=== PATIENT | female | born 1960 | race Caucasian/White ===

== ENCOUNTER → 2021-12-30 11:50 | Outpatient (CLI) | payer OTHER, SELFPAY ==
[2021-12-30 15:23] LABS: Folate > 20.0 ng/mL (2.76-20.0); Vitamin B12 750 pg/mL (239-931)
== END ==
PROVIDERS: PCP Family Medicine; Referring Provider Family Medicine; Visit Provider Family Medicine
DX: R53.83 Other fatigue (principal)
CPT/HCPCS: 36415; 82607; 82746; 84207

== ENCOUNTER → 2022-02-12 10:08 | Outpatient (CLI) | payer OTHER, SELFPAY ==
--- NOTE | 2022-02-12 10:09 | DI.US.S_ITS ---
ULTRASOUND OF RIGHT BREAST AND AXILLA: 02/12/2022 CLINICAL: Patient returns today to evaluate an asymmetry in the right breast. Comparison is made to exams dated: 02/12/2022 mammogram - [facility], 04/15/2021 ultrasound, 04/15/2021 mammogram, 10/02/2020 mammogram, and 10/02/2020 ultrasound - outside facility. Ultrasound of the right breast axilla was performed. There is a 0.9 cm x 0.7 cm x 0.8 cm irregular mass with an indistinct margin in the right breast at 12 o'clock middle depth 3 cm from the nipple. This irregular mass is hypoechoic. This abnormality is slightly increased in size. No significant abnormalities were seen sonographically in the right axilla. Few prominent lymph nodes with normal morphology are noted. IMPRESSION: SUSPICIOUS OF MALIGNANCY The 0.9 cm x 0.7 cm x 0.8 cm irregular mass in the right breast is at a moderate suspicion for malignancy. An ultrasound guided biopsy is recommended. Few prominent axillary lymph nodes with normal morphology are noted. This exam was interpreted at Station ID: [id number]. Electronically Signed By: Joaquin Smith M.D. lc/:02/13/2022 15:15:44 letter sent: Biopsy Required Ultrasound BI-RADS: 4b Moderate suspicion of malignancy
--- NOTE | 2022-02-12 10:09 | DI.MG.S_ITS ---
BILATERAL DIGITAL DIAGNOSTIC MAMMOGRAM 3D/2D: 02/12/2022 CLINICAL: Short term follow up for bilateral breasts. Comparison is made to exams dated: 10/02/2020 mammogram, 10/02/2020 ultrasound, 04/15/2021 ultrasound, and 04/15/2021 mammogram - outside facility. There are scattered fibroglandular elements in both breasts. There is an irregular mass with a microlobulated margin in the right breast at 12 o'clock anterior depth 3 cm from the nipple. No other significant masses, calcifications, or other findings are seen in either breast. IMPRESSION: INCOMPLETE: NEEDS ADDITIONAL IMAGING EVALUATION The irregular mass in the right breast is at a moderate suspicion for malignancy. US report to follow. A core biopsy is recommended. Based on the Tyrer Cuzick model (a risk assessment model) the patient's lifetime risk is 13.2% and her 10 year risk is 6.3%. According to the ACR, ACS, and NCCN guidelines, an annual breast MRI exam along with mammogram is recommended if the patient's lifetime risk is 20% or greater. This exam was interpreted at Station ID: [id number]. NOTE: For mammograms, a report in lay terms will be sent to the patient. Approximately 15% of breast malignancies will not be visualized mammographically. In the management of a palpable breast mass, a negative mammogram must not discourage biopsy of a clinically suspicious lesion. Electronically Signed By: Joaquin Smith M.D. lc/:02/12/2022 12:35:52 ACR BI-RADS Category 0: Incomplete 3340F
[2022-02-16 09:15] LABS: Vitamin B6 37.8 ug/L (3.4-65.2)
== END ==
PROVIDERS: PCP Family Medicine; Referring Provider Family Medicine; Visit Provider Family Medicine
DX: R92.1 Mammographic calcification found on diagnostic imaging of breast (principal); N63.15 Unspecified lump in the right breast, overlapping quadrants; E53.1 Pyridoxine deficiency; Z98.890 Other specified postprocedural states
CPT/HCPCS: 36415; 76642; 77066; 84207; G0279

== ENCOUNTER → 2022-02-26 14:04 | Outpatient (CLI) | payer OTHER, SELFPAY ==
--- NOTE | 2022-02-26 | DI.MG.S_ITS ---
UNILATERAL RIGHT DIGITAL DIAGNOSTIC MAMMOGRAM 3D/2D POST-PROCEDURE IMAGING FOR MARKER PLACEMENT: 02/26/2022 CLINICAL: Right post clip. Comparison is made to exams dated: 02/12/2022 ultrasound, 02/12/2022 mammogram - [facility], 04/15/2021 ultrasound, and 04/15/2021 mammogram - outside facility. There are scattered fibroglandular elements in right breast. There is a biopsy clip approximately 1 cm anterior to the biopsy site. IMPRESSION: The biopsy clip approximately 1 cm anterior to the biopsy site. Based on the Tyrer Cuzick model (a risk assessment model) the patient's lifetime risk is 13.2% and her 10 year risk is 6.3%. According to the ACR, ACS, and NCCN guidelines, an annual breast MRI exam along with mammogram is recommended if the patient's lifetime risk is 20% or greater. This exam was interpreted at Station ID: [id number]. NOTE: For mammograms, a report in lay terms will be sent to the patient. Approximately 15% of breast malignancies will not be visualized mammographically. In the management of a palpable breast mass, a negative mammogram must not discourage biopsy of a clinically suspicious lesion. Electronically Signed By: Eduardo Lima M.D. fx/:02/26/2022 17:11:06 ACR BI-RADS Category n/a
--- NOTE | 2022-02-26 | PATH_ITS ---
[facility] Accession Number: [id number] . 01 Material submitted: . breast - RIGHT BREAST MASS 12:00 ABOUT 3 CM FROM NIPPLE . 01 Clinical history: . UNSPECIFIED LUMP IN THE RIGHT BREAST UNSPECIFIED . 01 Diagnosis: Right Breast, Mass, 12 o'clock, 3 cm from Nipple, Image-Guided Core Biopsy: Atrophic breast tissue with stromal fibrosis and calcification. Negative for significant atypia and malignancy. MRV 02/27/2022 1618 Local . 01 Comment: Please correlate the histologic findings with the imaging results. . 01 Electronically signed: . Irena Castillo MD, Pathologist NPI- [id number] . 01 Gross description: . Received in formalin, labeled right breast 12:00, are multiple pieces of iverson adipose tissue ranging in size from 0.6 x 0.3 x 0.3 cm to 1.7 x 0.5 x 0.4 cm. All tissue is entirely submitted in cassette A1. Collection date and time are listed as 02/26/22 at 16:06 p.m., for a total approximate fixation time after processing of 13 hours. ([id number]) /FRR 02/27/2022 0330 Local . 01 Pathologist provided ICD-10: N63.10 . 01 CPT . 660347 Specimen Comment: A courtesy copy of this report has been sent to [facility] Performed at: 01 [facility] [address] [place] [address], [place], [place] [id number] MD Ghassan Murguia MD Phone: [phone]
--- NOTE | 2022-02-26 14:05 | DI.US.S_ITS ---
ULTRASOUND GUIDED BIOPSY RIGHT BREAST USING VACUUM DEVICE WITH MARKING DEVICE INSERTED AND POST MAMMOGRAPHIC AND ULTRASOUND IMAGIN02/26/2022 CLINICAL: Right breast mass. PATIENT CONSENT: Risks (minor bleeding, infection, vasovagal reaction and repeat procedure), benefits and alternatives were explained to the patient and written informed consent was obtained. Correlation is made to exams dated: 02/26/2022 mammogram, 02/12/2022 ultrasound, 02/12/2022 mammogram - [facility], 04/15/2021 ultrasound, 04/15/2021 mammogram, and 10/02/2020 mammogram - outside facility. An ultrasound guided biopsy using real-time ultrasound was performed for the oval mass located in the right breast at 12 o'clock posterior depth. This was described on the previous ultrasound report. The skin was prepped in the usual manner. Local anesthetic was administered to the access site. The abnormality was approached from the lateral aspect. A 13 gauge biopsy needle was placed adjacent to the abnormality under ultrasound guidance. Once the needle was documented to be in the correct location, seven specimens were obtained using the Mammotome biopsy system. A clip was inserted into the biopsy cavity. Post procedure mammographic and ultrasound imaging demonstrates the location device is 1 cm anteiror to the targeted area. The specimens were sent to the laboratory for pathological analysis. IMPRESSION: ULTRASOUND GUIDED BIOPSY BENIGN Ultrasound guided biopsy of the mass in the right breast at 12 o'clock posterior depth was successful. Pathology indicates benign atrophic breast tissue with stromal fibrosis and calcification. Pathology results are concordant with imaging findings. A follow-up right mammogram and an ultrasound in 6 months is recommended to demonstrate stability. This exam was interpreted at Station ID: [id number]. Eduardo Paz M.D. fx,aty/:03/06/2022 18:04:12
== END ==
PROVIDERS: PCP Family Medicine; Referring Provider Family Medicine; Visit Provider Family Medicine
DX: N60.31 Fibrosclerosis of right breast (principal)
CPT/HCPCS: 19083; 77065

== ENCOUNTER → 2022-10-23 11:49 | Outpatient (CLI) | payer BC, OTHER, SELFPAY ==
--- NOTE | 2022-10-23 11:50 | DI.MG.S_ITS ---
UNILATERAL RIGHT DIGITAL DIAGNOSTIC MAMMOGRAM 3D/2D: 10/23/2022 CLINICAL: Short term follow up of the right breast. Comparison is made to exams dated: 02/26/2022 ultrasound biopsy, 02/26/2022 mammogram, 02/12/2022 ultrasound, 02/12/2022 mammogram - [facility], 04/15/2021 ultrasound, and 04/15/2021 mammogram - outside facility. There are scattered areas of fibroglandular density in the right breast (category b / 25%-50% glandular tissue). Redemonstration of previously described 1 cm oval mass in the right breast at 12 o'clock middle depth. This is not significantly changed and correlates with ultrasound findings and the biopsy. There is a biopsy clip associated with the mass which remains stable in positioning projecting approximately 1 cm anterior to biospy site. No other significant masses or calcifications are seen in the breast. IMPRESSION: INCOMPLETE: NEEDS ADDITIONAL IMAGING EVALUATION The 1 cm oval mass in the right breast is indeterminate. An ultrasound is recommended for further evaluation and is scheduled to immediately follow this examination. Based on the Tyrer Cuzick model (a risk assessment model) the patient's lifetime risk is 13.2% and her 10 year risk is 6.3%. According to the ACR, ACS, and NCCN guidelines, an annual breast MRI exam along with mammogram is recommended if the patient's lifetime risk is 20% or greater. This exam was interpreted at Station ID: [id number]. NOTE: For mammograms, a report in lay terms will be sent to the patient. Approximately 15% of breast malignancies will not be visualized mammographically. In the management of a palpable breast mass, a negative mammogram must not discourage biopsy of a clinically suspicious lesion. Electronically Signed By: Curtis Paz M.D. aty/:10/23/2022 12:52:37 ACR BI-RADS Category 0: Incomplete 3340F
--- NOTE | 2022-10-23 11:50 | DI.US.S_ITS ---
ULTRASOUND OF RIGHT BREAST: 10/23/2022 CLINICAL: 6 month follow-up biopsy. Comparison is made to exams dated: 10/23/2022 mammogram, 02/26/2022 ultrasound biopsy, 02/26/2022 mammogram, 02/12/2022 ultrasound, 02/12/2022 mammogram - [facility], and 04/15/2021 ultrasound - outside facility. Color flow and real-time ultrasound of the right breast were performed. Hernandez scale images of the real-time examination were reviewed. There is a 0.7 cm x 0.6 cm x 0.7 cm irregular mass with a non-circumscribed margin in the right breast at 12 o'clock middle depth 3 cm from the nipple. This irregular mass is hypoechoic with no posterior acoustic shadowing or enhancement. This abnormality is less prominent. Color flow imaging demonstrates that there is no vascularity present. This correlates with previously biopsied mass which showed migration of the biopsy marker approximately 1 cm away. IMPRESSION: BENIGN The 0.7 cm x 0.6 cm x 0.7 cm irregular mass in the right breast is consistent with benign biopsy and history of clip migration. A follow-up bilateral mammogram and a right ultrasound in 6 months is recommended to demonstrate continued stability. Consider returning to routine screening mammography thereafter if no abnormalities seen. Findings and recommendations were conveyed to the patient during today's evaluation. This exam was interpreted at Station ID: [id number]. Electronically Signed By: Curtis Paz M.D. aty/:10/23/2022 13:11:59 letter sent: Followup Recommended Ultrasound BI-RADS: 2 Benign
== END ==
PROVIDERS: PCP Family Medicine; Referring Provider Family Medicine; Visit Provider Family Medicine
DX: R92.8 Other abnormal and inconclusive findings on diagnostic imaging of breast (principal); N63.15 Unspecified lump in the right breast, overlapping quadrants
CPT/HCPCS: 76642; 77065; G0279

== ENCOUNTER → 2023-03-01 10:16 | Outpatient (CLI) | payer BC, MEDICARE, OTHER, SELFPAY ==
--- NOTE | 2023-03-01 10:23 | DI.RAD.S_ITS ---
Bone Density Report Name: PALOMO LOWE Age: 63 Sex: Female Ethnicity: White Date of : 1960 Indication: postmenopausal; screening for osteoporosis; Referring Provider: LUDY BELL Study: Bone densitometry was performed. Exam Date: March 01, 2023 Accession number: [id number] Bone Density: Region BMD T-score Z-score Classification AP Spine(L2, L3, L4) 1.087 0.1 1.9 Normal Femoral Neck (Left) 0.705 -1.3 0.2 Osteopenia Total Hip (Left) 0.825 -1.0 0.3 Normal Femoral Neck (Right) 0.687 -1.5 0.1 Osteopenia Total Hip (Right) 0.836 -0.9 0.4 Normal Total Hip Mean 0.831 -1.0 0.4 Normal Total Forearm (Left) 0.536 -0.8 0.8 Normal 1/3 Forearm (Left) 0.609 -1.4 0.2 Osteopenia UD Forearm (Left) 0.408 -0.6 0.6 Normal World Health Organization criteria for BMD impression classify patients as: Normal (T-score at or above -1.0), Osteopenia (T-score between -1.0 and -2.5), or Osteoporosis (T-score at or below -2.5). 10-year Fracture Risk(1): Major Osteoporotic Fracture 8.4% Hip Fracture 0.8% Reported Risk Factors: [place] (), Neck BMD=0.687, BMI=29.6 (1) FRAX(R) Version 3.08. Fracture probability calculated for an untreated patient. Fracture probability may be lower if the patient has received treatment. Impression: The patient has low bone mass, based on the Right Femoral Neck T-score. The patient has an estimated ten-year risk of hip fracture of 0.8% and an estimated ten-year risk of major fracture of 8.4%, based on the WHO FRAX algorithm. Discussion: BONE DENSITY IS LOW AT ONE OR MORE SKELETAL SITES. This patient's lowest T-score is low at one or more skeletal sites. It meets the World Health Organization's (WHO) criteria for low bone mass (T-score between -1.0 and -2.5). The patient's 10-year risk of fracture as calculated by FRAX is less than the threshold where pharmacological therapy is recommended by the National Osteoporosis Foundation (NOF). However, all treatment decisions require clinical judgment and consideration of individual patient factors, including patient preferences, comorbidities, previous drug use, risk factors not captured in the FRAX model (e.g., frailty, falls, vitamin D deficiency, increased bone turnover, interval significant decline in bone density) and possible under or overestimation of fracture risk by FRAX. The patient should follow a healthful lifestyle (good nutrition with adequate calcium and vitamin D, and appropriate weight-bearing exercise). Follow-Up: Consider repeating this study in 2 to 3 years to reassess this patient's status, or sooner if there is some new clinical indication. Reported by: KARIN ACOSTA MD on 03/01/2023 3:06:00 PM.
== END ==
PROVIDERS: PCP Family Medicine; Referring Provider Family Medicine; Visit Provider Family Medicine
DX: Z13.820 Encounter for screening for osteoporosis (principal); M85.851 Other specified disorders of bone density and structure, right thigh; E21.3 Hyperparathyroidism, unspecified; Z78.0 Asymptomatic menopausal state; Z90.710 Acquired absence of both cervix and uterus
CPT/HCPCS: 77081; 77086

== ENCOUNTER → 2023-04-29 10:14 | Outpatient (CLI) | payer BC, MEDICARE, OTHER, SELFPAY ==
--- NOTE | 2023-04-29 10:15 | DI.US.S_ITS ---
ULTRASOUND OF RIGHT BREAST: 04/29/2023 CLINICAL: Patient returns today to evaluate an asymmetry in the right breast. Comparison is made to exams dated: 04/29/2023 mammogram, 10/23/2022 ultrasound, 10/23/2022 mammogram, 02/26/2022 ultrasound biopsy, 02/26/2022 mammogram, and 02/12/2022 ultrasound - [facility]. Color flow and real-time ultrasound of the right breast were performed on the areas of interest. Hernandez scale images of the real-time examination were reviewed. There is a stable mass in the right breast at 12 o'clock middle depth. This irregular mass is hypoechoic. This correlates with mammography findings and previous biopsy site. IMPRESSION: BENIGN There is no sonographic evidence of malignancy. The stable irregular mass in the right breast is benign. Return to annual mammogram screening schedule is recommended. This exam was interpreted at Station ID: [id number]. Electronically Signed By: Linda berrios/:04/29/2023 11:12:56 letter sent: Normal Exam Ultrasound BI-RADS: 2 Benign
--- NOTE | 2023-04-29 10:15 | DI.MG.S_ITS ---
BILATERAL DIGITAL DIAGNOSTIC MAMMOGRAM 3D/2D SHORT-TERM FOLLOW-UP: 04/29/2023 CLINICAL: Short term follow up of the right breast, due for bilateral imaging. post bx. Comparison is made to exams dated: 10/23/2022 mammogram, 02/26/2022 mammogram, 02/12/2022 mammogram - [facility], and 04/15/2021 mammogram - outside facility. There are scattered areas of fibroglandular density in both breasts (category b / 25%-50% glandular tissue). There is a stable 1 cm oval mass in the right breast at 12 o'clock middle depth. This correlates with ultrasound findings and previous biopsy site. There is a biopsy clip associated with the mass. No other significant masses, calcifications, or other findings are seen in either breast. IMPRESSION: INCOMPLETE: NEEDS ADDITIONAL IMAGING EVALUATION The stable 1 cm oval mass in the right breast is indeterminate. A targeted ultrasound of the right breast is recommended and will be performed immediately following this exam. Based on the Tyrer Cuzick model (a risk assessment model) the patient's lifetime risk is 12.7% and her 10 year risk is 6.2%. According to the ACR, ACS, and NCCN guidelines, an annual breast MRI exam along with mammogram is recommended if the patient's lifetime risk is 20% or greater. This exam was interpreted at Station ID: [id number]. NOTE: For mammograms, a report in lay terms will be sent to the patient. Approximately 15% of breast malignancies will not be visualized mammographically. In the management of a palpable breast mass, a negative mammogram must not discourage biopsy of a clinically suspicious lesion. Electronically Signed By: Linda berrios/:04/29/2023 11:01:01 ACR BI-RADS Category 0: Incomplete 3340F
== END ==
PROVIDERS: PCP Family Medicine; Referring Provider Family Medicine; Visit Provider Family Medicine
DX: R92.8 Other abnormal and inconclusive findings on diagnostic imaging of breast (principal); N60.01 Solitary cyst of right breast
CPT/HCPCS: 76642; 77066; G0279

== ENCOUNTER → 2024-06-05 07:46 | Outpatient (CLI) | payer BC, MEDICARE, OTHER, SELFPAY ==
--- NOTE | 2024-06-05 | DI.MG.S_ITS ---
BILATERAL DIGITAL SCREENING MAMMOGRAM 3D/2D WITH CAD: 06/05/2024 CLINICAL: Routine screening. Family history of breast cancer. Comparison is made to exams dated: 04/29/2023 mammogram, 10/23/2022 mammogram, 02/26/2022 mammogram, 02/12/2022 mammogram - [facility], and 10/02/2020 mammogram - outside facility. There are scattered areas of fibroglandular density (category b / 25%-50% glandular tissue). Current study was also evaluated with a Computer Aided Detection (CAD) system. No significant masses, calcifications, or other findings are seen in either breast. There has been no significant interval change. IMPRESSION: NEGATIVE There is no mammographic evidence of malignancy. A 1 year screening mammogram is recommended. Based on the Tyrer Cuzick model (a risk assessment model) the patient's lifetime risk is 12.1% and her 10 year risk is 6.2%. According to the ACR, ACS, and NCCN guidelines, an annual breast MRI exam along with mammogram is recommended if the patient's lifetime risk is 20% or greater. This exam was interpreted at Station ID: [id number]. NOTE: For mammograms, a report in lay terms will be sent to the patient. Approximately 15% of breast malignancies will not be visualized mammographically. In the management of a palpable breast mass, a negative mammogram must not discourage biopsy of a clinically suspicious lesion. Electronically Signed By: Curtis rea/dheeraj:06/05/2024 10:07:26 letter sent: Normal Exam ACR BI-RADS Category 1: Negative
== END ==
PROVIDERS: PCP Family Medicine; Referring Provider Family Medicine; Visit Provider Family Medicine
DX: Z12.31 Encounter for screening mammogram for malignant neoplasm of breast (principal); Z80.3 Family history of malignant neoplasm of breast
CPT/HCPCS: 77063; 77067

== ENCOUNTER → 2025-05-13 14:45 | Outpatient (CLI) | payer BC, MEDICARE, OTHER, SELFPAY ==
--- NOTE | 2025-05-13 14:51 | DI.CT.S_ITS ---
PROCEDURE: CT CHEST WO CON INDICATIONS: f/u pulmonary nodule TECHNIQUE: Noncontrast 2.0-2.5 mm thick sections acquired from the pulmonary apices to the posterior costophrenic angles. 7 mm thick axial MIP and 5 mm coronal and sagittal reformats were then acquired. For radiation dose reduction, the following was used: automated exposure control, adjustment of mA and/or kV according to patient size. COMPARISON: Outside Facility, CT, CT CHEST WO CON, 04/21/2023, 13:34. FINDINGS: Image quality: Diagnostic. Lower Neck: No enlarged lymph nodes. Thyroid: No thyroid nodules which require sonographic follow up, per consensus guidelines. Axillae: No enlarged lymph nodes. Chest Wall: Stable appearance of nodular densities in the right breast. Bones: Visualized osseous structures appear intact without acute fracture or focal destructive lesion. No acute compression fractures of the imaged spine. Lungs and Pleura: No pneumothorax or pleural effusions. No new suspicious or enlarging pulmonary nodules. Redemonstration of numerous tiny punctate calcified pulmonary granulomas compatible with prior granulomatous disease. No septal thickening or nodularity. Visualized airways appear patent. Stable appearance of 5 mm sub solid nodule in the central/mid left upper lobe. Heart: Heart size is normal. No pericardial effusion. Thoracic Vessels: The aorta and pulmonary arteries demonstrate normal size. Mediastinum and Harmony: No enlarged lymph nodes. Esophagus: No wall thickening. No hiatal hernia. Upper Abdomen: Visualized upper abdomen solid organs and bowel loops appear normal. IMPRESSION: 1. Stable sub solid 5 mm nodule in the left upper lobe. Recommend follow-up chest CT in 24 months to document continued long-term stability. 2. Multiple calcified pulmonary granulomas compatible with prior granulomatous disease. 3. CT chest without acute cardiopulmonary abnormalities. Fleischner Society criteria for SOLID lung nodule followup. Nodule size (mm)Low-risk patientHigh-risk patient<6 (single or multiple)No routine followup.Optional CT at 12 months. 6-8 (single or multiple)CT at 6-12 months, then optional CT at 18-24 mo.CT at 6-12 months, then CT at 18-24 months. >8 (single)CT at 3 months, PET-CT, or biopsy. Same as for low-risk pts. >8 (multiple)CT at 3-6 months, then optional CT at 18-24 mo.CT at 3-6 months, then CT at 18-24 months. Fleischner Society criteria for SUB-SOLID lung nodule followup. Solitary pure ground-glass nodules<6 mm (ground glass or part solid)No followup needed. 6 mm or larger (ground glass)CT at 6-12 months to confirm persistence, then CT every 2 years until 5 years.6 mm or larger (part solid)CT at 3-6 months to confirm persistence, then annual CT until 5 years if unchanged and solid component remains <6 mm. Multiple sub-solid nodules<6 mmCT at 3-6 months, then CT consider at 2 & 4 years for high risk patients. [address] at 3-6 months. Subsequent management based on most suspicious lesions. Recommendations do not apply to lung cancer screening, patients with immunosuppression, or patients with known primary cancer. Dictated by: Curtis Paz M.D. on 05/15/2025 at 8:58 Approved by: Curtis Paz M.D. on 05/15/2025 at 9:06
== END ==
LOC: CT 14:50
PROVIDERS: PCP Family Medicine; Referring Provider Student in an Organized Health Care Education/Training Program; Visit Provider Student in an Organized Health Care Education/Training Program
DX: J98.4 Other disorders of lung (principal); R91.1 Solitary pulmonary nodule
CPT/HCPCS: 71250